=== PATIENT | female | born 1975 | race Caucasian/White ===

== ENCOUNTER 2016-10-14 05:16 | Day surgery (SDC) | payer MEDICAID ==
[~2016-10-14] VITALS: Ht 167.6 cm; Wt 99.8 kg
--- NOTE | ~2016-10-14 | OP ---
PATIENT NAME: YULIA DE LA ROSA MEDICAL RECORD: [id number] :77 LOCATION:D.OPS ADMISSION DATE: SURGEON: JOSHUA RUSSELL MD DATE OF OPERATION: 10/14/2016 PREOPERATIVE DIAGNOSES: 1. Gallstones. 2. Psoriasis. POSTOPERATIVE DIAGNOSES: 1. Gallstones. 2. Psoriasis. PROCEDURE: Laparoscopic cholecystectomy. SURGEON: Joshua Russell MD REPORT OF PROCEDURE: The patient's abdomen was prepped and draped in sterile fashion. The cutdown was made on the superior aspect of the umbilicus, 0 Vicryls were placed in the fascia bilaterally and the fascia was incised with 15-blade. I then bluntly entered the peritoneal cavity and placed a 12-mm Mya port. Under direct visualization, a 5 mm trocar was placed in the epigastrium and 2 more 5-mm trocars were placed in the right subcostal region. The gallbladder was elevated and showed no signs of any inflammatory changes. The cystic artery and cystic duct were dissected free and these were clipped proximally and distally and ligated in standard fashion. The gallbladder was taken off the liver bed using electrocautery and placed in the right upper quadrant. Any bleeding from the liver bed was then treated with electrocautery. We irrigated out the right upper quadrant and assured there was no sign of any bleeding or bile leakage. At this point, the ports and insufflation were then removed and the gallbladder was taken out through the umbilicus. The umbilical fascia was closed with interrupted 0 Vicryls times 3. The wounds were irrigated out with normal saline and infused with 10 mL of 0.25% Marcaine with epinephrine. The skin incisions were all closed with subcutaneous 5-0 Monocryl and dressed appropriately. COMPLICATIONS: None. CONDITION: Stable. ANESTHESIA: General endotracheal and local. BLOOD LOSS: Minimal. TRANSINT:[id number] Voice Confirmation ID: [id number] DOCUMENT ID: [id number] JOSHUA RUSSELL MD CC: ANAHY JUDY [id number] DICTATION DATE: 10/14/16840 DIRECTOR DIGITAL CATALOGUE: 10/14/161832 [facility] 10/14/16 [place] [address]
[~2016-10-14 05:16] MED LIST: VITAMIN D31000 UNI2 PO
[2016-10-14 05:54] VITALS: BP 120/74; Ht 167.6 cm; Wt 99.8 kg
[2016-10-14 06:34] LABS: HCG URINE NEGATIVE (NEGATIVE)
[2016-10-14 07:22] LABS: BASOPHILS 0.9 % (0-2); EOSINOPHILS 3.8 % (0-7); HEMATOCRIT 40.7 % (36.0-48.0); HEMOGLOBIN 13.5 g/dL (12-16); IMMATURE GRANULOCYTES 0.3 % (0-5); LYMPHOCYTES 23.2 % (15-50); MCH 28.5 pg (26.0-34.0); MCHC 33.2 g/dL (31.0-37.0); MEAN PLATELET VOLUME 10.2 fL (7.4-10.4); MONOCYTES 10.4 % (2-11); NEUTROPHILS 61.4 % (40-80); PLATELET COUNT 259 10x3/uL (130-400); RBC 4.73 10x6/uL (4.00-5.40); WBC 7.6 10x3/uL (4.8-10.8)
[2016-10-14 07:29] LABS: ANION GAP 11.8 mmol/L (8-16); CALCIUM 8.6 mg/dL (8.5-10.1); CARBON DIOXIDE 24.9 mmol/L (21.0-32.0); CREATININE - SERUM 0.9 mg/dL (0.6-1.3); POTASSIUM - SERUM 3.7 mmol/L (3.5-5.1)
[2016-10-14] MEDS ORDERED: HYDROCODONE-APA1 TAB PO (08:38)
--- NOTE | 2016-10-14 11:45 | NUR ---
UP TO BATHROOM, GAIT STEADY. VOIDED WITHOUT DIFFICULTY. IV REMOVED INTACT. DISCHARGE INSTRUCTIONS AND RX GIVEN, VOICED UNDERSTANDING.
== END 2016-10-14 12:00 | disposition home or self-care (01) ==
LOC: D.OPS 05:16 → D.PAN 07:30 → D.OPS 12:00 → D.PAN 12:00
PROVIDERS: Surgery
DX: K80.20 Calculus of gallbladder without cholecystitis without obstruction (principal); L40.9 Psoriasis, unspecified